=== PATIENT | male | born 2000 | race Two or more races ===

== ENCOUNTER 2021-06-25 11:53 | Emergency (ER) | payer OTHER ==
[~2021-06-25] VITALS: Ht 175.3 cm; Wt 72.0 kg
[2021-06-25 11:53] VITALS: BP 123/72
--- NOTE | 2021-06-25 12:10 | EKG ---
[address] [address] Test Date: 2021-06-25 Test Time: 09:51:15 Pat Name: JUANA GARCIA Department: Room: Gender: M Humanities Professor: : 2000 Requested By: ANSHU BALBUENA Order Number: [id number] Reading MD: Edwardo Momin Measurements Intervals [place] Rate: 74 P: 26 UT: 124 QRS: 66 QRSD: 76 T: 24 QT: 364 QTc: 404 Interpretive Statements SINUS RHYTHM NORMAL ECG RI6.02 No previous ECG available for comparison Electronically Signed On 06-27-2021 16:10:49 DIRECTOR CLIENT by Edwardo Momin
[2021-06-25] MEDS ORDERED: HYDROcodone/APAP 5/325MG 1 TAB TABLET PO ONE (12:30)
--- NOTE | 2021-06-25 12:37 | PHYS DOC ---
General Adult EDM: Chief Complaint: POST-OP PROBLEM HPI: HPI: Patient is a 21-year-old male presents with skin reaction after knee surgery. Patient states that he spoke with his surgeon who told him to remove bandage and to follow-up tomorrow. Patient states he is being seen for knee pain and medication he was sent home with is not helping. (HONG GRIFFITH APRN) Review of Systems: Review of Systems: Constitutional: Denies fever or chills Eyes: Denies change in visual acuity HENT: Denies nasal congestion or sore throat Respiratory: Denies cough or shortness of breath Cardiovascular: Denies chest pain or edema GI: Denies abdominal pain, nausea, vomiting, bloody stools or diarrhea : Denies dysuria Musculoskeletal: Denies back pain or joint pain Integument: Denies rash Neurologic: Denies headache, focal weakness or sensory changes Endocrine: Denies polyuria or polydipsia Lymphatic: Denies swollen glands Psychiatric: Denies depression or anxiety (HONG GRIFFITH APRN) Allergies: Allergies: Allergies Coded Allergies Type Severity Reaction Last Updated Verified No Known Drug Allergies 06/25/21 No (HONG GRIFFITH APRN) Physical Exam: PE: Constitutional: Well developed, well nourished, no acute distress, non-toxic appearance. [] HENT: Normocephalic, atraumatic, bilateral external ears normal, oropharynx moist, no oral exudates, nose normal. [] Eyes: PERRLA, EOMI, conjunctiva normal, no discharge. [] Neck: Normal range of motion, no tenderness, supple, no stridor. [] Cardiovascular:Heart rate regular rhythm, no murmur [] Lungs & Thorax: Bilateral breath sounds clear to auscultation [] Abdomen: Bowel sounds normal, soft, no tenderness, no masses, no pulsatile masses. [] Skin: Fluid-filled blister, right knee Back: No tenderness, no CVA tenderness. [] Extremities: Right knee tenderness, fluid-filledblister to right knee, no cyanosis, no clubbing, ROM intact, no edema. [] Neurologic: Alert and oriented X 3, normal motor function, normal sensory function, no focal deficits noted. [] Psychologic: Affect normal, judgement normal, mood normal. [] (HONG GRIFFITH APRN) EKG: EKG: [] (HONG GRIFFITH APRN) Radiology/Procedures: Radiology/Procedures: [] (HONG GRIFFITH APRN) Heart Score: C/O Chest Pain: No Risk Factors: Risk Factors: DM, Current or recent (<one month) smoker, HTN, HLP, family history of CAD, obesity. Risk Scores: Score 0 - 3: 2.5% MACE over next 6 weeks - Discharge Home Score 4 - 6: 20.3% MACE over next 6 weeks - Admit for Clinical Observation Score 7 - 10: 72.7% MACE over next 6 weeks - Early Invasive Strategies (HONG GRIFFITH APRN) Course & Med Decision Making: Course & Med Decision Making Pertinent Labs and Imaging studies reviewed. (See chart for details) [] 21-year-old male presents with skin reaction after having surgery on his meniscus. Patient reached out to his surgeon and sent him a picture of his knee. Surgeon suggested he follow-up tomorrow in his office for further recommendation. Patient was instructed by surgeon to not wear a bandage due to possible reaction. Patient denies shortness of breath, itching to site. Patient has a fluid-filled blister on right knee. Patient is reporting pain in stating that pain Acacian sent home is not helping. Patient given hydrocodone in the emergency room to treat pain. Advised patient to take Benadryl if he has itching to area. Discussed not using original bandage. Discussed return precautions in length. Advised patient to keep his follow-up appointment tomorr ow with surgeon and to discuss further options for pain control. Patient agrees with discharge plan and is appreciative. Patient is hemodynamically stable upon disposition. (HONG GRIFFITH APRN) Course & Med Decision Making I was the ER physician during date of ER visit. ENGRAVER independently saw and treated patient. Although I was in the department seeing other patients, no assistance was requested. Electronically signed, Anshu Balbuena DO (ANSHU BALBUENA DO) Eleno Disclaimer: Eleno Disclaimer: This electronic medical record was generated, in whole or in part, using a voice recognition dictation system. (HONG GRIFFITH APRN) Departure Departure: Impression: Primary Impression: Knee pain, right Qualified Codes: M25.561 - Pain in right knee Disposition: HOME / SELF CARE / HOMELESS Condition: STABLE Referrals: CHESTER LEROY (PCP) Patient Instructions: Knee Pain, [id number] Additional Instructions: You were seen in the emergency room for right-sided knee pain after surgery. You had a fluid-filled blister at the surgery site. Your surgeon also saw the picture of your knee and want you to follow-up tomorrow. Do not wear original bandage due to possible reaction. Take Benadryl as suggested by your surgeon if you have any itching to the site. You were given pain medication while in the ER to help with pain. Please discuss your concerns with pain control with your surgeon tomorrow at your appointment. Please return to the emergency room if you have worsening symptoms or concerns. EMERGENCY DEPARTMENT GENERAL DISCHARGE INSTRUCTIONS Thank you for coming to [facility] ([facility]) today and trusting us with you care. We trust that you had a positivie experience in our Emergency Department. If you wish to speak to the department management, you may call the director at [phone]. YOUR FOLLOW UP INSTRUCTIONS ARE FOLLOWS: 1. Do you have a private Doctor? If you do not have a private doctor, please ask for a resource list of physicians or clinics that may be able to assist you with follow up care. 2. The Emergency Physician has interpreted your x-rays. The X-Ray specialist will also review them. If there is a change in the findings, you will be notified in 48 hours when at all possible. 3. A lab test or culture has been done, your results will be reviewed and you will be notified if you need a change in treatment. ADDITIONAL INSTRUCTIONS AND INFORMATION: 1. Your care today has been supervised by a physician who is specially trained in emergency care. Many problems require more than one evaluation for a complete diagnosis and treatment. We recommend that you schedule your follow up appointment as recommended to ensure complete treatment of you illness or injury. If you are unable to obtain follow up care and continue to have a problem, or if your condition worsens, we recommend that you return to the ED. 2. We are not able to safely determine your condition over the phone nor are we able to give sound medical advice over the phone. For these safety reasons, if you call for medical advice we will ask you to come to the ED for further evaluation. 3. If you have any questions regarding these discharge instructions please call the ED at [phone]. SAFETY INFORMATION: In the interest of safety, wellness, and injury prevention; we encourage you to wear your sealbelt, if you smoke; quite smoking, and we encourage family to use a protective helmet for bicycling and other sporting events that present an increased risk for head injury. IF YOUR SYMPTOMS WORSEN OR NEW SYMPTOMS DEVELOP, OR YOU HAVE CONCERNS ABOUT YOUR CONDITION; OR IF YOUR CONDITION WORSENS WHILE YOU ARE WAITING FOR YOUR FOLLOW UP APPOINTMENT; EITHER CONTACT YOUR PRIMARY CARE DOCTOR, THE PHYSICIAN WHOSE NAME AND NUMBER YOU WERE GIVEN, OR RETURN TO THE ED IMMEDIATELY. HONG GRIFFITH APRN Jun 25, 2021 12:37 ANSHU BALBUENA DO Jun 27, 2021 11:09
== END 2021-06-25 12:55 | disposition home or self-care (01) ==
LOC: ER 11:53
DX: M25.561 Pain in right knee (principal); G89.18 Other acute postprocedural pain
CPT/HCPCS: 93005; 99283